=== PATIENT | female | born 1980 | race Caucasian/White ===

== ENCOUNTER 2020-06-10 04:05 | Inpatient (IN) | payer OTHER ==
[2020-06-10] MEDS ORDERED: CITRIC ACID/SODIUM CITRATE 30 ML UNIT-DOSE CUP PO ONE (04:30)
[2020-06-10] MEDS ORDERED: ELECTROLYTE-148 SOLN 500 ML IV ONE (04:30)
[2020-06-10] MEDS ORDERED: ELECTROLYTE-148 SOLN 1,000 ML IV SCH ×2 (05:00→08:30)
[2020-06-10 05:05] VITALS: BMI 27.1
[2020-06-10] MEDS ORDERED: morphine SULFATE/PF 0.5 MG/ML (2cc Syringe - QUVA) ONE (08:12)
--- NOTE | 2020-06-10 08:27 | HP ---
Past Medical History - Primary Care Physician PCP:: Chino Lilly - Admission Chief Complaint: 39yo P2 with at EGA 39wk and prior C/S x 2 admitted for repeat C/S in spontaneous early labor. History of Present Illness: complicated by: AMA Prior C/S x 2 Presented today in spont early labor Desires bilateral salpingectomy History Source: Patient, Medical Record Limitations to Obtaining History: No Limitations - Past Medical History HOME AIDE: Yes: Migraine Cardiovascular: No: AFIB, Aneurysm, Aortic Insufficiency, Aortic Stenosis, CAD, CHF, Deep Vein Thrombosis, HTN, Hyperlipdemia, MT, Mitral Insufficiency, Mitral Stenosis, Murmur, Pulmonary Hypertension, Other Pulmonary: No: Asthma, Bronchitis, Cancer, COPD, O2 Dependent, Pneumonia, Previously Intubated, Pulmonary Embolus, Pulmonary Fibrosis, Sleep Apnea, Other Gastrointestinal: No: Ascites, Cancer, Constipation, Crohn's Disease, Diverticulitis, Diverticulosis, Esophageal Varices, Gastritis, GERD, GI Bleed, Hemorrhoids, Hiatal Hernia, Inflamatory Bowel Disease, Irritable Bowel Disease, Pancreatitis, Peptic Ulcer Disease, Ulcerative Colitis, Other Hepatobiliary: No: Cirrhosis, Cholelithiasis, Cholecystitis, Choledocholithiasis, Hepatitis A, Hepatitis B, Hepatitis C, Other Renal/: No: Renal Failure, Renal Inusuff, BPH, Cancer, Hematuria, Hemodialysis, Neurogenic Bladder, Renal Calculi, UTI, Other Reproductive: No: Ectopic , Endometriosis, Fibroids, PID, Polycystic Ovary Syndrome, Postmenopausal, Other ...: 3 ...Para: 3 ...Term: 3 ...: 0 ...Spon : 0 ...Induced : 0 ...Living Children: 3 ...Multiple Gestation: 1 ... Weeks Gestation by Dates: 39.5 ...EDC by Dates: 06/12/20 Heme/Onc: No: Anemia, B12 Deficiency, Bleeding Disorder, Cancer, Current Chemotherapy, Current Radiation Therapy, Hemochromatosis, Hypercoaguable State, Myeloproliferative Synd, Sickle Cell Disease, Sickle Cell Trait, Thrombocytopenia, Other Infectious Disease: No: AIDS, C-Diff, Herpes Zoster, HIV, MRSA, STD's, Tuberculosis, VREF, Other Psych: No: Addictions, Anxiety, Bipolar, Depression, Panic, Psychosis, Schizophrenia, Other Musculoskeletal: No: Bursitis, Chronic low back pain, Hemiparesis, Hemiplegia, Osteoarthritis, Paraplegia, Other Rheumatology: No: Fibromyalgia, Gout, Lupus, Rheumatoid Arthritis, Sarcoidosis, Vasculitis, Other ENT: No: Allergic Rhinitis, Sinusitis, Other Endocrine: No: Mack's Disease, Amston's Disease, Diabetes Insipidus, Diabetes Mellitus, Hyperparathyroidism, Hyperthyroidism, Hypothyroidism, Osteopenia, SIADH, Other Dermatology: No: Basal Cell, Cellulitis, Eczema, Melanoma, Psoriasis, Squamous Cell, Other - Past Surgical History Past Surgical History: Yes: Appendectomy, (x 2) Hx Myomectomy: No Hx Transabdominal Cerclage: No Additional Surgical History: Laparoscop for Endometriosis, Hysteroscopic my omectomy - Smoking History Smoking history: Never smoked Have you smoked in the past 12 months: No Aproximately how many cigarettes per day: 0 - Alcohol/Substance Use Hx Alcohol Use: No History of Substance Use: reports: None - Social History Usual Living Arrangement: Yes: With Spouse, With Child Do you think of yourself as: Straight/Heterosexual ADL: Independent History of Recent Travel: No Home Medications - Allergies Allergies/Adverse Reactions: Allergies Allergy/AdvReac Type Severity Reaction Status Date / Time No Known Allergies Allergy Verified 06/10/20 04:49 - Home Medications Home Medications: Ambulatory Orders Vits96/Iron Fum/Folic [ Tablet] 1 each PO DAILY 06/10/20 Family Medical History Family Hx Cardiac Disorders: Mother (HTN) Review of Systems - Review of Systems Constitutional: reports: No Symptoms Eyes: reports: No Symptoms HENT: reports: No Symptoms Neck: reports: No Symptoms Cardiovascular: reports: No Symptoms Respiratory: reports: No Symptoms Gastrointestinal: reports: No Symptoms Genitourinary: reports: No Symptoms Breasts: reports: No Symptoms Reported Musculoskeletal: reports: No Symptoms Integumentary: reports: No Symptoms Neurological: reports: No Symptoms Endocrine: reports: No Symptoms Hematology/Lymphatic: reports: No Symptoms Psychiatric: reports: No Symptoms Pain Intensity: 0 Physical Exam - Maternity Vital Signs: Vital Signs Temperature 98.1 F 06/10/20 04:53 Pulse Rate 82 06/10/20 04:53 Respiratory Rate 20 06/10/20 04:53 Blood Pressure 114/65 06/10/20 04:53 O2 Sat by Pulse Oximetry (%) Constitutional: Yes: Well Nourished, No Distress, Calm Eyes: Yes: WNL, Conjunctiva Clear, EOM Intact HENT: Yes: WNL, Atraumatic, Normocephalic Neck: Yes: WNL, Supple, Trachea Midline Cardiovascular: Yes: WNL, Regular Rate and Rhythm Lungs: Clear to auscultation, Normal air movement Breast(s): Yes: WNL - Abdominal Exam/OB Fundal Height: 40 Number of Fetuses: Single Presentation: Vertex Contractions: Yes Regularity: Irregular Intensity: Mild Monitor Mode: External Heart Rate (range): 140 Heart Rate Location: Midline Category: I Accelerations: Uniform Decelerations: None - Vaginal Exam/OB Vaginal Bleeding: No Speculum Exam: No Amniotic Membrane Status: Intact Presentation: Vertex/Position - Physical Exam Musculoskeletal: Yes: WNL Extremities: Yes: WNL Edema: No Integumentary: Yes: WNL Deep Tendon Reflex Grade: Normal +2 ...Motor Strength: WNL Psychiatric: Yes: WNL, Alert, Oriented Hemorrhage Risk Assessment - Risk Factors Medium Risk Factors: Yes: Prior , uterine surgery,or multiple laparot omies High Risk Factors: Yes: None Risk Score: 1 Risk Level: Medium Risk Imaging - Results Ultrasound: Report Reviewed Assessment/Plan 39yo P2 with at EGA 39wk and prior C/S x 2 admitted for repeat C/S in spontaneous early labor. The decision was made to proceed with delivery by C/S. The pt also requested sterilization with b/l salpingectomy. We discussed the risks and benefits of C/S and salpingectomy at length, including but not limited to scarring, pain, bleeding, infection, injury to underlying organs and structures, need for additional surgery to repair/treat any problems or complications, complications/injuries, etc. The pt verbalized her understanding and requested to proceed with surgery. The pt is aware that all surgeries have risks and no guarantees can be provided.
[2020-06-10 09:30] LABS: CORD BASE EXCESS -3.1 mmol/L (0-2); CORD HCO3 22.7 mmHg (20-29); CORD PCO2 43.5 mmHg (30-78); CORD pH 7.335 (7.14-7.44)
[2020-06-10 09:33] LABS: CORD HCO3 25.3 mmHg (20-29); CORD PCO2 55.1 mmHg (30-78)
[2020-06-10] MEDS ORDERED: WITCH HAZEL 50% (TUCKS) 40 PAD/JAR PAD TP PRN (10:09)
[2020-06-10] MEDS ORDERED: BENZOCAINE 20% 57 GM BOTTLE TP PRN (10:09)
[2020-06-10] MEDS ORDERED: oxyCODONE HCL 5 MG TABLET PO PRN (10:09)
[2020-06-10] MEDS ORDERED: SIMETHICONE 80 MG TAB.CHEW (FP) PO PRN (10:09)
[2020-06-10] MEDS ORDERED: SENNOSIDES/DOCUSATE COMBO (SENNA PLUS) TABLET (UD) PO PRN (10:09)
[2020-06-10] MEDS ORDERED: IBUPROFEN 600 MG TABLET (FP) PO PRN (10:09)
[2020-06-10] MEDS ORDERED: METHYLERGONOVINE MALEATE 0.2 MG/1 ML AMP IM PRN (10:09)
[2020-06-10] MEDS ORDERED: OXYTOCIN 20 UNITS in 0.9% NS 20 UNIT/1,000 ML INFUS.BAG IV SCH (10:15)
[2020-06-10] MEDS ORDERED: ONDANSETRON 4 MG/2 ML VIAL IVPUSH PRN (10:26)
--- NOTE | 2020-06-10 10:36 | OP ---
Operative Note - Note: Operative Date: 06/10/20 Pre-Operative Diagnosis: at EGA 39w 5d. Prior C/S x 2. Spontaneous early labor. Sterilization Operation: Repeat LT C/S, bilateral salpingectomy Findings: Live baby girl in vtx presentation, no meconium in amniotic fluid, normal uterus/tubes/ovaries. 9-9, Wt 8lbs 5 oz. Post-Operative Diagnosis: Same as Pre-op Surgeon: Chino Lilly Human Resources District Manager: Yue Boyd Anesthesiologist/PREP COOK: Misael Roper Anesthesia: Spinal Specimens Removed: Placenta, bilateral fallopian tubes Estimated Blood Loss (mls): 600 Drains & Tubes with Location: Hawkins Catheter Drains, Volume Out (mls): 300 Blood Volume Replaced (mls): 0 Fluid Volume Replaced (mls): 1,500 Operative Report Dictated: Yes
[2020-06-10] MEDS ORDERED: IBUPROFEN 800 MG/8 ML IJ IVPB ONE (11:39)
[2020-06-10] MEDS ORDERED: OXYTOCIN 20 UNITS in 0.9% NS 20 UNIT/1,000 ML INFUS.BAG IV ONE (11:40)
[2020-06-10] MEDS: IBUPROFEN 800 MG/8 ML IJ IVPB PRN (11:44)
--- NOTE | 2020-06-10 19:50 | OP ---
DATE OF OPERATION: 06/10/2020 PREOPERATIVE DIAGNOSIS: at estimated gestational age of 39 weeks and 5 days, previous section x2, spontaneous early labor, sterilization. POSTOPERATIVE DIAGNOSIS: at estimated gestational age of 39 weeks and 5 days, previous section x2, spontaneous early labor, sterilization. PROCEDURE: Repeat low transverse section via Pfannenstiel skin incision, bilateral salpingectomy, revision of the old keloid scar. SURGEON: Chino Lilly MD. GRAPHIC ART SALES REPRESENTATIVE: Yue Boyd MD. ANESTHESIOLOGIST: Misael Roper MD. ANESTHESIA: Spinal. COMPLICATIONS: None. ESTIMATED BLOOD LOSS: 600 mL. INTRAVENOUS FLUIDS: 1500 mL. URINE OUTPUT: 300 mL of clear urine at the end of the procedure. PATHOLOGY: Placenta and right and left fallopian tubes. FINDINGS: Live baby girl in vertex presentation. No meconium in amniotic fluids. Normal uterus, fallopian tubes, and ovaries. Baby's Apgars are 9 and 9. Baby's weight, 8 pounds and 5 ounces. DESCRIPTION OF PROCEDURE: The patient was met preoperatively. Risks, benefits, and alternatives of surgery were discussed in details. All questions were answered. The consent form was reviewed and discussed. The patient verbalized her understanding and requested to proceed with the surgery. The patient was brought to the OR with the IV running. She was placed on the surgical table in a sitting position. The spinal anesthesia was achieved without difficulty. The patient was then placed in a supine with a leftward tilt. The level of spinal anesthesia was checked and found to be adequate. The patient was prepped and draped in the usual sterile fashion. A Hawkins catheter was inserted and left to drain to gravity. A timeout was conducted as per standard protocol. The surgeon then proceeded with the operation. A Pfannenstiel skin incision was made with a knife along the prior scar. The incision was taken down to the level of fascia. The fascia was incised in the midline. The incision was extended bilaterally using Fernandez scissors. The fascia was dissected away from the rectus muscles superiorly and inferiorly using sharp dissection. The rectus muscles were in the midline. The peritoneum was identified and entered sharply. The peritoneal incision was extended superiorly and inferiorly using Metzenbaum scissors. The bladder peritoneum was dissected away from the lower uterine segment using sharp dissection. The bladder was reflected downwards using a Minot retractor. The lower uterine segment was incised transversely. The incision was extended bilaterally using bandage scissors. The amniotic bag was sutured, and clear amniotic fluid was noted. The baby was delivered from vertex presentation without complication. The umbilical cord was clamped and cut. The baby was handed to the waiting pump servicer helper. The baby was crying spontaneously. The placenta was delivered by manual extraction without complications. The placenta was sent to pathology. The uterus was cleared of all clots and debris using laparotomy laps. The uterine incision was repaired using 0 Biosyn suture with good hemostasis and approximation. The uterine incision was imbricated using a secondary layer of closure with the Biosyn suture. Good hemostasis was noted. The right fallopian tube was then identified and followed to the fimbriated end. A LigaSure device was used to excise the right fallopian tube with good hemostasis. The left fallopian tube was then identified and followed to the fimbriated end. The left fallopian tube was also excised using a LigaSure device with good hemostasis. The operative site was again surveyed, and good hemostasis was confirmed. The parietal peritoneum was then closed using a 2-0 chromic suture. The rectus muscles were approximated using several interrupted 2-0 chromic sutures. The fascia was closed using a 0 Vicryl suture with good hemostasis and approximation. The subcutaneous adipose tissues were closed using several interrupted 0 Vicryl sutures. The old cheloid skin scar was excised and the skin incision was closed using a 3-0 Vicryl suture using a subcutaneous stitch. Sponge, lap, and instruments counts were correct. Patient tolerated procedure well and she was transferred to recovery room in stable condition. Thomas [id number]
[2020-06-11] MEDS: IBUPROFEN 800 MG/8 ML IJ IVPB PRN (02:19)
[2020-06-11 08:29] LABS: BASO % 0.1 % (0-2.0); EOS % 0.2 % (0-4.5); HEMATOCRIT 31.2 % (32.4-45.2); HEMOGLOBIN 10.5 GM/dL (10.7-15.3); LYMPH % 10.9 % (8-40); MCH 33.1 pg (25.7-33.7); MCHC 33.6 g/dl (32.0-36.0); MEAN CELL VOLUME 98.5 fl (80-96); MEAN PLT VOLUME 8.9 fl (7.5-11.1); MONO % 7.3 % (3.8-10.2); NEUT % 81.5 % (42.8-82.8); PLATELET COUNT 190 K/MM3 (134-434); RBC 3.16 M/mm3 (3.60-5.2); RDW 12.7 % (11.6-15.6); WHITE BLOOD COUNT 10.8 K/mm3 (4.0-10.0)
[2020-06-11] MEDS ORDERED: BISACODYL 10 MG SUPP.RECT RC PRN (10:09)
[2020-06-11] MEDS: ENOXAPARIN NA (PORCINE) 40 MG/0.4 ML DISP.SYRIN SQ SCH (10:12)
[2020-06-11] MEDS: PRENATAL VITAMINS W/ FOLIC ACID TABLET (FP) PO SCH (10:12)
--- NOTE | 2020-06-11 16:49 | PN ---
Post Progress Note - Subjective Subjective: Patient without acute complaints. Tolerating regular diet, without complaints of nausea or vomiting. Ambulating Denies fevers or chills. / pumping Pain well controlled Hawkins removed this AM, voiding Positive flatus. Reports entire body itching Post Day: 1 Type of Delivery: Repeat C/S Vital Signs: Vital Signs Temperature 97.6 F 06/11/20 10:00 Pulse Rate 93 H 06/11/20 10:00 Respiratory Rate 20 06/11/20 10:00 Blood Pressure 93/54 L 06/11/20 10:00 O2 Sat by Pulse Oximetry (%) 93 L 06/11/20 10:00 Breast Exam: Yes: Soft Uterus: Yes: Fundus Firm Incision: Yes: Sutures intact Abdomen/GI: Yes: Abdomen soft Lochia: Yes: Rubra Lochia, amount: Small Extremities: Yes: Calves non-tender Perineum: Yes: Intact Activity: Ambulating - Labs Labs: CBC WBC 10.8 K/mm3 (4.0-10.0) H 06/11/20 07:47 RBC 3.16 M/mm3 (3.60-5.2) L 06/11/20 07:47 Hgb 10.5 GM/dL (10.7-15.3) L 06/11/20 07:47 Hct 31.2 % (32.4-45.2) L 06/11/20 07:47 MCV 98.5 fl (80-96) H 06/11/20 07:47 MCH 33.1 pg (25.7-33.7) 06/11/20 07:47 MCHC 33.6 g/dl (32.0-36.0) 06/11/20 07:47 RDW 12.7 % (11.6-15.6) 06/11/20 07:47 Plt Count 190 K/MM3 (134-434) 06/11/20 07:47 MPV 8.9 fl (7.5-11.1) 06/11/20 07:47 Absolute Neuts (auto) 8.8 K/mm3 (1.5-8.0) H 06/11/20 07:47 Neutrophils % 81.5 % (42.8-82.8) D 06/11/20 07:47 Lymphocytes % 10.9 % (8-40) D 06/11/20 07:47 Monocytes % 7.3 % (3.8-10.2) 06/11/20 07:47 Eosinophils % 0.2 % (0-4.5) D 06/11/20 07:47 Basophils % 0.1 % (0-2.0) 06/11/20 07:47 Nucleated RBC % 0 % (0-0) 06/11/20 07:47 Assessment/Plan 39yo POD # 1 s/p Repeat c/section vss, Afebrile Doing well Benadryl for pruritis prescribed Rh pos no need for RhoGam Allowed to shower Encourage ambulation cont. routine PP care
--- NOTE | 2020-06-11 17:21 | PN ---
Progress Note (short form) - Note Progress Note: Anesthesia POD#1 S/P under spinal and DM VSS, no N/V, pain is under control,itch around the dressing. Feels comfortable after the removal of bandage. Almaz Keys MD.
[2020-06-11] MEDS ORDERED: diphenhydrAMINE HCL 25 MG CAPSULE (FP) PO PRN (17:49)
[2020-06-11 21:51] VITALS: PULSE 99
--- NOTE | 2020-06-12 08:00 | DS ---
Physical Exam-DESKTOP SPECIALIST Vital Signs: Vital Signs Temperature 98.3 F 06/11/20 21:51 Pulse Rate 99 H 06/11/20 21:51 Respiratory Rate 20 06/11/20 21:51 Blood Pressure 102/65 06/11/20 21:51 O2 Sat by Pulse Oximetry (%) 93 L 06/11/20 10:00 Constitutional: Yes: Well Nourished, No Distress, Calm Eyes: Yes: WNL, Conjunctiva Clear, EOM Intact HENT: Yes: WNL, Atraumatic, Normocephalic Neck: Yes: WNL, Supple, Trachea Midline Cardiovascular: Yes: WNL, Regular Rate and Rhythm Respiratory: Yes: WNL, Regular, CTA Bilaterally Gastrointestinal: Yes: WNL ...Rectal Exam: Yes: WNL Renal/: Yes: WNL ....Post : Yes: Uterus firm, Uterus non-tender, Slight lochia rubra Breast(s): Yes: WNL Musculoskeletal: Yes: WNL Extremities: Yes: WNL Edema: LLE: Trace, RLE: Trace Integumentary: Yes: WNL Wound/Incision: Yes: Clean/Dry, Well Approximated, Sutures Intact, Steri Strips Neurological: Yes: WNL, Alert, Oriented ...Motor Strength: WNL Psychiatric: Yes: WNL, Alert, Oriented Labs: CBC, BMP 06/11/20 07:47 Delivery - Delivery Section: Repeat Type of Anesthesia: Spinal Episiotomy/Laceration: None EBL (cc): 600 Delivery, Single - Stages of Labor Date of Delivery: 06/10/20 Time of Delivery: 08:54 Time Placenta Delivered: 08:55 Placenta: Yes: Expressed - Condition of Methods Analyst Data Processing/Human Resources Department Supervisor Present: Yes Name: Soila Devi Infant Gender: Female Weight: 8 lb 5 oz Position: Left, OT Total Hours ROM (Hrs/Mins): 2min - 1 Minute Total Score: 9 5 Minutes Total Score: 9 - [place] Feeding Plan Initial Plan: Elected not to breastfeed exclusively throughout hospitalization Discharge Summary Problems reviewed: Yes Reason For Visit: ADMIT- C/S Procedures: Principal: repeat lst c/s Hospital Course: no complication Plan of Treatment: follow up office 1 week Condition: Good - Instructions Diet, Activity, Other Instructions: regular diet, no intercourse ,if fever , pain, heavy vaginal bleeding call MD follow up office 1 week Referrals: Chino Lilly MD [Staff Physician] - Disposition: HOME - Home Medications Comprehensive Discharge Medication List: Ambulatory Orders Vits96/Iron Fum/Folic [ Tablet] 1 each PO DAILY 06/10/20 Ibuprofen [Motrin -] 600 mg PO QID #28 tablet 06/11/20
[2020-06-12] MEDS: PRENATAL VITAMINS W/ FOLIC ACID TABLET (FP) PO SCH (09:27)
[2020-06-12] MEDS: ENOXAPARIN NA (PORCINE) 40 MG/0.4 ML DISP.SYRIN SQ SCH (09:27)
[2020-06-12 10:55] LABS: BASO % 0.2 % (0-2.0); EOS % 0.3 % (0-4.5); HEMATOCRIT 29.7 % (32.4-45.2); LYMPH % 12.2 % (8-40); MCH 33.5 pg (25.7-33.7); MCHC 33.8 g/dl (32.0-36.0); MEAN PLT VOLUME 8.6 fl (7.5-11.1); MONO % 7.5 % (3.8-10.2); NEUT % 79.8 % (42.8-82.8); PLATELET COUNT 230 K/MM3 (134-434); WHITE BLOOD COUNT 9.5 K/mm3 (4.0-10.0)
[2020-06-12 10:59] VITALS: BP 116/57; TEMP 98.2
--- NOTE | 2020-06-17 17:47 | PATH ---
Surgical Pathology Report Patient Name: NIR WATSON [facility]. Rec. #: [id number] /Age/Gender: 1980 (Age: 39) / F Account: [id number] Location: [facility] OBS/CYBERATHLETE Taken: 06/10/2020 Received: 06/11/2020 Reported: 06/17/2020 Physicians: Chino Lilly M.D. Specimen(s) Received A: PLACENTA B: LEFT PORTION OF FALLOPIAN TUBE C: RIGHT PORTION OF FALLOPIAN TUBE Clinical History and 39.5 weeks, x2 Final Diagnosis A. PLACENTA, SECTION: 647 G THIRD TRIMESTER PLACENTA WITH TRIVASCULAR UMBILICAL CORD, FOCAL INTRAPARENCHYMAL INFARCT (~10% OF PLACENTAL SURFACE), AND UNREMARKABLE PLACENTAL MEMBRANES. B. FALLOPIAN TUBE PORTION, LEFT, SALPINGECTOMY: UNREMARKABLE FALLOPIAN TUBE (INCLUDING FIMBRIATED END AND FULL LUMINAL PORTION). C. FALLOPIAN TUBE PORTION, RIGHT, SALPINGECTOMY: FALLOPIAN TUBE WITH PARATUBAL CYST AND FOCAL DECIDUALIZED STROMA (INCLUDING FIMBRIATED END AND FULL LUMINAL PORTION). Electronically Signed Isabel Islas M.D. Gross Description A. The specimen is received fresh labeled placenta and is a 647 gram, 29.0 x 9.0 x 2.0 cm. placenta with attached membranes and umbilical cord. The attached membranes are nation, translucent with focal opacities and insert marginally. The umbilical cord measures 13 cm. in length and averages 1 cm. in diameter. The cord inserts eccentrically, 6.5 cm. to the nearest margin. No true knots or strictures are identified. Cut surface of the umbilical cord reveals 3 vessels. The surface is ashraf-blue with minimal fibrin deposition and appropriate caliber vessels. The maternal surface is red-brown with focal defects. Sectioning reveals a 3.0 cm in greatest dimension nation, firm intraparenchymal lesion. The remaining placental parenchyma is red-brown and spongy. Rock Splitter sections are submitted in three cassettes as follows: 1-membrane roll and umbilical cord; 2-lesion; [id number] section of placenta. B. received in formalin labeled "left portion of fallopian tube," is a 7.5 cm in length fimbriated fallopian tube. The outer surface is nation-duron and smooth. Sectioning reveals an unremarkable lumen. Rock Splitter sections are submitted in 2 cassettes as follows: 1-fimbria; 2-cross sections of fallopian tube. C. Received in formalin labeled "right portion of fallopian tube," is a 5.5 cm in length fimbriated fallopian tube. The outer surface is duron purple with a 1.2 cm in greatest dimension paratubal cyst attached. Sectioning reveals an unremarkable lumen. Rock Splitter sections are submitted in 2 cassettes as follows: 1-fimbria and paratubal cyst; 2-cross sections of fallopian tube. 06/12/2020 [facility]06/12/2020
== END 2020-06-12 12:45 | disposition home or self-care (01) | DRG 785 ==
LOC: JLDR 04:05 → J3W 13:30
PROVIDERS: ADMIT Obstetrics & Gynecology; ATTEND Obstetrics & Gynecology
PROC: 10D00Z1 Extraction of Products of Conception, Low, Open Approach (ICD-10-PCS; principal; 2020-06-10)
PROC: 0UB70ZZ Excision of Bilateral Fallopian Tubes, Open Approach (ICD-10-PCS; 2020-06-10)
DX: O82 Encounter for cesarean delivery without indication (principal); O34.211 Maternal care for low transverse scar from previous cesarean delivery; Z30.2 Encounter for sterilization; Z3A.39 39 weeks gestation of pregnancy; Z37.0 Single live birth; L29.8 Other pruritus
CPT/HCPCS: 36415; 36600; 82803; 85025; 88302-TC; 88307-TC